=== PATIENT | male | born 1955 | race Asian ===

== ENCOUNTER 2019-07-23 14:54 | Emergency (ER) | payer OTHER ==
[~2019-07-23] VITALS: Ht 172.7 cm; Wt 73.9 kg
[~2019-07-23 14:54] MED LIST: CLOPIDOGREL75 MG PO; CVS SENNA8.6 MG PO; DONE5TAB PO; FLUOXETINE10 MG PO; FLUOXETINE20 MG PO; GABA300C2 PO; HYDR5TAB9 PO; LIPITOR10 MG PO; MAGNSUS68 PO; MEMANTINE HYDRO28 MG PO; MOBIC15 MG PO; MULTIVITAMI1 PO; NICOTINE T14 MG/241 TD; OLAN2.5T2 PO; OXCARBAZEPIN300 MG PO; RISP0.5T2 PO; RISP1TAB PO; ROWEEPRA500 MG PO; VITAMIN D31000 UNI1 PO; [UNRECOGNIZED DRUG - OTHER] PO
[2019-07-23 16:01] LABS: PLATELET COUNT 147 K/uL (142-355)
[2019-07-23 16:11] LABS: SODIUM 136 mmol/L (136-145)
[2019-07-23 23:46] VITALS: TEMP 99.5
[2019-07-24 00:43] VITALS: BP 109/57
== END 2019-07-24 00:55 | disposition short-term general hospital (02) ==
LOC: ED 14:54
PROVIDERS: Family Medicine
DX: R56.9 Unspecified convulsions (principal); R74.0 Nonspecific elevation of levels of transaminase and lactic acid dehydrogenase [LDH]; J10.1 Influenza due to other identified influenza virus with other respiratory manifestations; A41.9 Sepsis, unspecified organism; I48.92 Unspecified atrial flutter
CPT/HCPCS: 51702; 80053; 80164; 81000; 83605; 85027; 87040; 87502; 93005; 96360; 96365; 96375; 99285; J0696; J1885; J1953

== ENCOUNTER 2019-07-24 01:00 | Outpatient (CLI) | payer OTHER | END 2019-07-24 02:17 | disposition short-term general hospital (02) | LOC: AMB 01:00 | DX: J10.1 Influenza due to other identified influenza virus with other respiratory manifestations (principal); R50.9 Fever, unspecified; A41.9 Sepsis, unspecified organism | CPT/HCPCS: A0425; A0427 ==